=== PATIENT | male | born 1955 | race African-American/Black ===

== ENCOUNTER 2017-01-15 13:54 | Emergency (ER) | payer OTHER ==
[2017-01-15 13:59] VITALS: TEMP 98.4; BMI 23.0
--- NOTE | 2017-01-15 14:05 | PDOC ---
History of Present Illness <Comfort Mandelanda - Last Filed: 01/15/17 14:46> - General History Source: Patient Exam Limitations: No Limitations - History of Present Illness Presenting Symptoms: Chest Pain Timing/Duration: reports: constant Severity/Quality: reports: mild Chest Pain Radiation: reports: no radiation <AlyJay - Last Filed: 01/15/17 15:10> - General Chief Complaint: Chest Pain Stated Complaint: CHEST PAIN Time Seen by Provider: 01/15/17 13:56 - History of Present Illness Initial Comments: 01/15/17 14:01 61 y/o male with left sided chest pain since this morning. No back pain or radiation down arm or neck. No lifting or fall. Does not worsen with movement. No SOB. No traveling. Family hx of heart disease, but the patient has no history. Started this morning. Took 3 baby Aspirin. (Jay Lu) Past History <Comfort Mandelanda - Last Filed: 01/15/17 14:46> - Suicide/Smoking/Psychosocial Hx Smoking History: Never smoked Hx Alcohol Use: No Drug/Substance Use Hx: No <AlyJay - Last Filed: 01/15/17 15:10> - Past Medical History Allergies/Adverse Reactions: Allergies Allergy/AdvReac Type Severity Reaction Status Date / Time No Known Allergies Allergy Verified 01/15/17 13:55 Home Medications: Ambulatory Orders Aspirin [ASA -] 81 mg PO DAILY 01/15/17 Simvastatin 20 mg PO DAILY 01/15/17 Review of Systems - Review of Systems Able to Perform ROS?: Yes Is the patient limited Swazi proficient: No Constitutional: No: Chills, Fever Respiratory: No: Cough, Shortness of Breath Cardiac (ROS): Yes: Chest Pain ABD/GI: No: Nausea, Vomiting Neurological: No: Headache All Other Systems: Reviewed and Negative <Jay Lu - Last Filed: 01/15/17 15:10> *Physical Exam - Physical Exam General Appearance: Yes: Nourished, Appropriately Dressed. No: Apparent Distress HEENT: positive: EOMI, TRENA, Normal ENT Inspection, Normal Voice, Pharynx Normal Neck: positive: Trachea midline, Normal Thyroid, Supple. negative: Tender, Rigid, Carotid bruit Respiratory/Chest: positive: Lungs Clear, Normal Breath Sounds. negative: Chest Tender (non reproducible chest pain to left ACW), Respiratory Distress Cardiovascular: positive: Regular Rhythm, Regular Rate, S1, S2. negative: Edema , JVD, Murmur Vascular Pulses: Femoral (R): 4+, Femoral (L): 4+, Carotid (R): 4+, Carotid (L) : 4+, Dorsalis-Pedis (R): 4+, Doralis-Pedis (L): 4+ Gastrointestinal/Abdominal: positive: Normal Bowel Sounds, Flat, Soft. negative : Tender, Organomegaly, Pulsatile Mass Lymphatic: negative: Adenopathy, Tenderness, Other Extremity: positive: Normal Capillary Refill, Normal Inspection, Normal Range of Motion. negative: Tender Integumentary: positive: Normal Color, Dry, Warm Neurologic: positive: spanish moss picker II-XII NML intact, Fully Oriented, Alert, Normal Mood/ Affect, Normal Response, Motor Strength 5/5 <Jay Lu - Last Filed: 01/15/17 15:10> - Vital Signs Last Vital Signs Temp Pulse Resp BP Pulse Ox 98.4 F 68 18 119/79 99 01/15/17 13:55 01/15/17 15:07 01/15/17 15:07 01/15/17 15:07 01/15/17 15:07 Heart Score/ECG Review <Gabi Mandel - Last Filed: 01/15/17 14:46> - ECG Intrepretation Rhythm: Regular Rhythm - ST and T Early Repolarization: No - ECG Impressions Normal ECG: Yes <Jay Lu - Last Filed: 01/15/17 15:10> - ECG Intrepretation Comment:: 01/15/17 14:05 rate 63, no STEMI 01/15/17 14:08 (Jay Lu) ED Treatment Course - LABORATORY CBC & Chemistry Diagram: 01/15/17 14:20 <Gabi Mandel - Last Filed: 01/15/17 14:46> - LABORATORY CBC & Chemistry Diagram: 01/15/17 14:20 01/15/17 14:26 <Jay Lu - Last Filed: 01/15/17 15:10> - ADDITIONAL ORDERS Additional order review: Laboratory Results 01/15/17 01/15/17 14:26 14:26 Sodium 134 L Potassium 4.0 Chloride 105 Carbon Dioxide 25 Anion Gap 4 L BUN 12 Creatinine 0.9 Creat Clearance w eGFR > 60 Random Glucose 97 Calcium 9.0 Total Bilirubin 0.5 AST 21 ALT 21 Alkaline Phosphatase 37 Troponin I < 0.03 L Total Protein 6.3 L Albumin 3.8 01/15/17 14:20 RBC 5.05 MCV 87.9 MCHC 33.5 RDW 11.9 MPV 8.3 Neutrophils % 62.2 Lymphocytes % 23.4 Monocytes % 8.3 Eosinophils % 5.2 H Basophils % 0.9 - RADIOLOGY Radiology Studies Ordered: Category Date Time Status CHEST X-RAY PORTABLE* [RAD] Stat Radiology 01/15/17 14:24 Completed Radiograph Interpretation: EXAM#: TYPE/EXAM: RESULT: [id number] RAD/CHEST X-RAY PORTABLE* AP 18 chest: Pain. A single view reveals clear lungs, prominent knob, normal phuc and normal heart the angles are sharp and the soft tissues are intact. An acute chest process is not seen. The bones and soft tissues are intact. Impression: No acute pathology. No significant change since 12/25/2007. Reported By: Jay Mckee MD 01/15/17 [id number] (Gabi Mandel) Progress Note <Gabi Mandel - Last Filed: 01/15/17 14:46> <Jay Lu - Last Filed: 01/15/17 15:10> - Progress Note Progress Note: Pt with left sided chest pain, will do cardiac work up. Work up negative, advised observation for monitoring Pt wishes to leave, will sign out AMA Risks and benefits explained to pt Pt feels it is more muscular. (Jay Lu) *DC/Admit/Observation/Transfer <Gabi Mandel - Last Filed: 01/15/17 14:46> - Discharge Dispostion Admit: No <Jay Lu - Last Filed: 01/15/17 15:10> Diagnosis at time of Disposition: Chest pain Qualifiers: Chest pain type: unspecified Qualified Code(s): R07.9 - Chest pain, unspecified - Discharge Dispostion Disposition: AGAINST MEDICAL ADVICE Condition at time of disposition: Stable - Patient Instructions Printed Discharge Instructions: DI for Atypical Chest Pain Additional Instructions: If pain worsen return to ER Follow up with [facility] Continue Aspirin 81 mg daily - Attestations Scribe Attestion: 01/15/17 14:46 Documentation prepared by Gabi Mandel, acting as manager medical affairs for Jay Lu MD (Gabi Mandel)
[2017-01-15 14:34] LABS: WHITE BLOOD COUNT 6.3 K/mm3 (4.0-10.8)
[2017-01-15 14:37] LABS: BASOPHIL 0.9 % (0-2.0); EOSINOPHIL 5.2 % (0-4.5); MCH 29.5 pg (25.7-33.7); MCHC 33.5 g/dl (32.0-35.9); MEAN CELL VOLUME 87.9 fl (80-96); MEAN PLT VOLUME 8.3 fl (7.5-11.1); NEUTROPHILS 62.2 % (42.8-82.8); PLATELET COUNT 228 K/MM3 (134-434); RDW 11.9 % (11.9-15.9)
[2017-01-15 14:47] LABS: ALBUMIN 3.8 g/dl (3.5-5.0); ALK PHOS 37 U/L (32-92); ANION GAP 4 (8-16); BILIRUBIN,TOTAL 0.5 mg/dl (0.2-1.0); CO2 25 mmol/L (22-28); CREATININE 0.9 mg/dl (0.6-1.3); GLUCOSE,RANDOM 97 mg/dl (74-106); SGOT/AST 21 U/L (10-42); SGPT/ALT 21 U/L (10-40); TOT PROT 6.3 g/dl (6.4-8.3)
[2017-01-15 15:08] VITALS: BP 119/79; PULSE 68
--- NOTE | 2017-01-16 08:31 | EKG ---
Test Reason : Blood Pressure : / mmHG Vent. Rate : 063 BPM Atrial Rate : 063 BPM P-R Int : 160 ms QRS Dur : 088 ms QT Int : 378 ms P-R-T Axes : 073 -19 056 degrees QTc Int : 386 ms NORMAL SINUS RHYTHM NORMAL ECG NO PREVIOUS ECGS AVAILABLE Confirmed by DEIRDRE DURANT MD ([id number] on 01/16/2017 8:31:04 AM Referred By: SAQIB MENA Confirmed By:DEIRDRE DURANT MD
== END 2017-01-15 15:15 | disposition left against medical advice (07) ==
LOC: EDBD 13:54 → FER 13:54
DX: R07.9 Chest pain, unspecified (principal)
CPT/HCPCS: 36415; 71010-TC; 80053; 84484; 85025; 93005; 99283-25